=== PATIENT | male | born 1960 | race Caucasian/White ===

== ENCOUNTER → 2017-03-06 | Outpatient (CLI) | payer OTHER ==
--- NOTE | 2017-03-06 21:29 | Diagnostic Imaging Report ---
INDICATION: Wellness checkup. PA and lateral chest obtained at 5:06 p.m. comparison made to 03/06/2016. FINDINGS: Heart and mediastinal silhouette are normal in appearance. The lungs show no focal infiltrate. There is some mild pleural thickening in left costophrenic angle which appears chronic. There is no acute appearing finding. IMPRESSION: No acute infiltrate. Chronic pleural thickening in left costophrenic angle appearing similar to the prior study. No new abnormality. Dictated by: Dictated on workstation # [id number]
== END ==
LOC: RAD 16:37
PROVIDERS: ATTEND Family Medicine
DX: Z00.00 Encounter for general adult medical examination without abnormal findings (principal); J92.9 Pleural plaque without asbestos
CPT/HCPCS: 71020

== ENCOUNTER 2020-05-02 15:15 | Emergency (ER) | payer BC ==
[~2020-05-02] VITALS: Ht 175 cm; Wt 77.0 kg
[2020-05-02 15:25] VITALS: BP 140/64
--- NOTE | 2020-05-02 15:38 | ED Integumentary General ---
General Chief Complaint: Bite-Animal/Human/Insect Stated Complaint: R HAND WOUND History of Present Illness Date Seen by Provider: May 02, 2020 Time Seen by Provider: 15:28 Initial Comments Patient is a 60-year-old male who presents to the emergency room today with a chief complaint of a dog bite to his right hand. Patient was trying to disrupt 2 dogs that were fighting and 1 bit his hand in the webspace between the thumb and index finger of his right hand. Patient suffered an avulsion type injury about the size of a quarter to the dorsum of the hand at the webspace between the first and second fingers. No other complaints of recent illness or injury. Unknown last tetanus shot. Patient is not a diabetic. All other review of systems reviewed and negative except as stated above. Timing/Duration: just prior to arrival Severity: moderate Location: hands Possible Cause: other (Dog bite) Allergies and Home Medications Allergies Coded Allergies: No Known Drug Allergies (Unverified , 03/20/11) Patient Home Medication List Home Medication List Reviewed: Yes Review of Systems Review of Systems Constitutional: see HPI Respiratory: no symptoms reported Cardiovascular: no symptoms reported Gastrointestinal: no symptoms reported Musculoskeletal: other (Dog bite right hand) Skin: other (Dog bite right hand) All Other Systems Reviewed Negative Unless Noted: Yes Physical Exam Vital Signs Vital Signs - First Documented 05/02/20 15:25 Temp 35.7 Pulse 65 Resp 18 B/P (MAP) 140/64 (89) Pulse Ox 97 Capillary Refill : General Appearance: WD/WN, no apparent distress Cardiovascular: regular rate, rhythm Respiratory: no respiratory distress, no accessory muscle use Gastrointestinal: non tender, soft Extremities: normal range of motion, non-tender Skin: normal color, warm/dry, other (Patient has a quarter sized avulsion of full-thickness skin to the webspace of the right hand between the thumb and index finger on the dorsum of the hand, no active bleeding. Subcutaneous fat is visible.) Skin Problem Location: upper extremities (Dorsum of right hand) Progress/Results/Core Measures Results/Orders My Orders Orders - GABRIEL GALVIN MD Dipht,Enedelia(Acell),Tet Adult (Boostrix (05/02/20 15:45) Hand, Right, 2 Views (05/02/20 15:38) Vital Signs/I&O 05/02/20 15:25 Temp 35.7 Pulse 65 Resp 18 B/P (MAP) 140/64 (89) Pulse Ox 97 Progress Progress Note : Time: 15:48 Progress Note 60-year-old male presents with a chief complaint of dog bite to the right hand. Dog was quarantined by police. It was a stray dog reportedly. Unknown rabies immunization status. Patient has full-thickness avulsion of skin of the right hand between the thumb and index finger, approximately the size of a quarter. The wound was anesthetized with 1% lidocaine plain approximately 3 cc. No active bleeding from the wound. Wound will be dressed with a wet-to-dry dressing and the patient will be referred to Dr. Ware in wound care for further wound management. Patient will be discharged home on Augmentin. Patient is comfortable with plan of care. All questions are sought and an swered. Patient is stable for discharge. Departure Impression Primary Impression: Dog bite Qualified Codes: W54.0XXA - Bitten by dog, initial encounter Disposition: HOME, SELF-CARE Condition: Stable Departure-Patient Inst. Decision time for Depature: 15:50 Referrals: MONTANA AVILEZ MD (PCP/Family) Primary Care Physician JEWEL WARE MD Patient Instructions: Animal Bites (DC) Add. Discharge Instructions: Keep the wound clean dry and covered with a wet to dry dressing. You can change this dressing once a day. Also you can change the dressing if it becomes soiled/dirty. But make sure that it is a wet to dry dressing. Please call Dr. Ware's office tomorrow for a follow-up appointment this week. Return to the emergency room if you have any swelling of the hand with redness, drainage, fever or any other emergent concerning symptoms. Please take the antibiotics twice daily until they are gone. All discharge instructions reviewed with patient and/or family. Voiced understanding. Scripts Amoxicillin/Potassium Clav (Amox Tr-K Clv 875-125 mg Tab) 1 Each Tablet 1 EACH PO BID for 7 Days, #14 TAB Prov: GABRIEL GALVIN MD 05/02/20 Copy Copies To 1: MONTANA AVILEZ MD Copies To 2: JEWEL WARE MD, KATHRYN M MD May 02, 2020 15:38
[2020-05-02] MEDS ORDERED: TETANUS,DIPTH,PERTUSS P/F (BOOSTRIX) 0.5 ML VIAL IM ONE (15:45)
[2020-05-02] MEDS ORDERED: AMOX1TAB12 PO (15:58)
[2020-05-02] MEDS ORDERED: AUGMENTIN 875 MG TAB (AMOXICILLIN/CLAVULANATE) PO STA (16:00)
--- NOTE | 2020-05-02 16:04 | Diagnostic Imaging Report ---
INDICATION: Dog bite to right hand. EXAMINATION: Three views of the right hand were obtained. FINDINGS: The alignment is normal. There is no fracture or dislocation. There is no radiopaque foreign body. IMPRESSION: No focal abnormality in the right hand. Dictated by: Dictated on workstation # [id number]
== END 2020-05-02 16:10 | disposition home or self-care (01) ==
LOC: EDUNIT# 15:15 → ER 15:18
DX: S61.401A Unspecified open wound of right hand, initial encounter (principal); Z23 Encounter for immunization; W54.0XXA Bitten by dog, initial encounter
CPT/HCPCS: 73120; 90715; 99283

== ENCOUNTER → 2020-05-03 | Outpatient (CLI) | payer BC ==
[~2020-05-03] MED LIST: AMOX1TAB12 PO
== END ==
LOC: WOUNDCARE 13:10
PROVIDERS: ATTEND Orthopaedic Surgery Hand Surgery
DX: S61.451A Open bite of right hand, initial encounter (principal)
CPT/HCPCS: A6197; G0463; 99212

== ENCOUNTER → 2020-05-11 | Outpatient (CLI) | payer BC | LOC: WOUNDCARE 14:22 | PROVIDERS: ATTEND Surgery | DX: S61.451A Open bite of right hand, initial encounter (principal); I96 Gangrene, not elsewhere classified | CPT/HCPCS: 11042; A6260; G0463 ==

== ENCOUNTER → 2020-05-18 | Outpatient (CLI) | payer BC | LOC: WOUNDCARE 14:48 | PROVIDERS: ATTEND Surgery | DX: S61.451A Open bite of right hand, initial encounter (principal); I96 Gangrene, not elsewhere classified | CPT/HCPCS: 11042; G0463 ==

== ENCOUNTER → 2020-05-25 | Outpatient (CLI) | payer BC | LOC: WOUNDCARE 13:55 | PROVIDERS: ATTEND Surgery | DX: S61.451A Open bite of right hand, initial encounter (principal); I96 Gangrene, not elsewhere classified | CPT/HCPCS: 11042; G0463 ==

== ENCOUNTER → 2020-06-01 | Outpatient (CLI) | payer BC | LOC: WOUNDCARE 15:03 | PROVIDERS: ATTEND Surgery | DX: S61.451A Open bite of right hand, initial encounter (principal); I96 Gangrene, not elsewhere classified; X58.XXXA Exposure to other specified factors, initial encounter | CPT/HCPCS: 11042 ==

== ENCOUNTER 2021-03-08 05:41 | Outpatient (CLI) | payer BC ==
[~2021-03-08] VITALS: Ht 172.7 cm; Wt 81.5 kg
[2021-03-08] MEDS ORDERED: MULT-593 PO (09:22)
[2021-03-08] MEDS ORDERED: ASCO500T17 PO (09:22)
[2021-03-08] MEDS ORDERED: OMG1KC PO (09:22)
== END 2021-03-08 11:35 | disposition home or self-care (01) ==
LOC: PREOP 05:41
PROVIDERS: ATTEND Surgery
DX: Z01.818 Encounter for other preprocedural examination (principal)

== ENCOUNTER 2021-03-14 08:21 | Day surgery (SDC) | payer BC ==
[~2021-03-14] VITALS: Ht 172.7 cm; Wt 81.5 kg
[~2021-03-14 08:21] MED LIST changes: +ASCO500T17 PO; +MULT-593 PO; +OMG1KC PO
[2021-03-14] MEDS ORDERED: LACTATED RINGERS 1,000 ML IV ONE (08:28)
--- NOTE | 2021-03-14 08:29 | Progress Note-Pre Operative ---
Pre-Operative Progress Note H&P Reviewed The H&P was reviewed, patient examined and no changes noted. Time Seen by Provider: 08:27 Date H&P Reviewed: Mar 14, 2021 Time H&P Reviewed: 08:27 Pre-Operative Diagnosis: Screening colonoscopy JENNIFER SMITH DO Mar 14, 2021 08:29
[2021-03-14] MEDS ORDERED: LACTATED RINGERS 1,000 ML IV STA (08:30)
[2021-03-14 08:36] VITALS: BP 149/69
[2021-03-14] MEDS ORDERED: PROPOFOL INJECTION 50 ML IV ONE (08:49)
[2021-03-14 09:10] VITALS: BP 125/72
--- NOTE | 2021-03-14 09:10 | Progress Note-Post Operative ---
Post-Operative Progess Note Surgeon (s)/Motion Picture Scene Builder (s) Surgeon JENNIFER SMITH DO Motion Picture Scene Builder: none Pre-Operative Diagnosis Screening colonoscopy Post-Operative Diagnosis Diverticula Int hemorrhoids Procedure & Operative Findings Date of Procedure 03/14/21 Procedure Performed/Findings PROCEDURE NOTE: After informed consent was obtained, the patient was brought to the endoscopy suite, placed in bed in left lateral decubitus position. He was administered IV sedation by the TAPE CONTROL SKIN OR SPAR MILL OPERATOR who then monitored his vitals the entire time, heart rate, blood pressure and pulse ox and the scope was inserted, pushed all the way to about 110 cm and pushed into the cecum, took a picture of appendiceal orifice and then slowly withdrew the scope insufflating the circumferentially at the smith starting in the cecum, up the ascending colon to the hepatic flexure, then down the transverse colon, splenic flexure, into the descending colon down into the sigmoid colon. I saw at least one small diverticula and took a picture. Finally into the rectal vault and retroflexed the scope. Took a picture of the internal hemorrhoids. The patient tolerated the procedure. He was recovered in endoscopy suite. Anesthesia Type IV sedation by Anesthesia Estimated Blood Loss Estimated blood loss (mL): none Specimens/Packing Specimens Removed none JENNIFER SMITH DO Mar 14, 2021 09:10
--- NOTE | 2021-03-14 09:11 | Endoscopy Discharge Instruct ---
Endo Procedure/Findings Findings 1.: Diverticulosis 2.: Internal Hemorrhoids Discharge Instructions - Activity: You might feel a little sleepy until tomorrow. This is due to the medicine you received to relax you. Until tomorrow, you should: NOT drive a car, operate machinery or power tools. NOT drink any alcoholic beverages. NOT make any important decisions or sign importortant papers. Do not return to work until tomorrow, unless otherwise instructed. Resume previous activities tomorrow. Diet: Start by taking liquids. If you tolerate liquids, advance to solid food. 1.: Colonscopy in 10 years Notify Physician - If you experience excessive bleeding, unusual abdominal pain, fever, or chest pain, contact your doctor immediately. JENNIFER SMITH DO Mar 14, 2021 09:11
[2021-03-14 09:15] VITALS: BP_SYST 136; BP_SYST 141; BP_DIAS 74; BP_DIAS 78
[2021-03-14 09:35] VITALS: BP 135/76
[2021-03-14 09:36] VITALS: BP 135/76
--- NOTE | 2021-03-14 09:41 | Anesthesia-General Post-Op ---
MAC Patient Condition Mental Status/LOC: Same as Preop Cardiovascular: Satisfactory Nausea/Vomiting: Absent Respiratory: Satisfactory Pain: Controlled Complications: Absent Post Op Complications Complications None Follow Up Care/Instructions Patient Instructions None needed. Anesthesiology Discharge Order Discharge Order Patient was seen after the procedure and he was doing well, no complaints, stable vital signs, no apparent adverse anesthesia problems. NORA BRITO DO Mar 14, 2021 09:41
== END 2021-03-14 09:42 | disposition home or self-care (01) ==
LOC: ENDO 08:21
PROVIDERS: ATTEND Surgery
DX: Z12.11 Encounter for screening for malignant neoplasm of colon (principal); K57.30 Diverticulosis of large intestine without perforation or abscess without bleeding; K64.8 Other hemorrhoids; G47.33 Obstructive sleep apnea (adult) (pediatric); Z99.89 Dependence on other enabling machines and devices

== ENCOUNTER 2021-06-18 12:52 | Emergency (ER) | payer BC ==
[~2021-06-18] VITALS: Ht 175 cm; Wt 72.5 kg
[2021-06-18] MEDS ORDERED: AMOX1TAB12 PO (13:34)
--- NOTE | 2021-06-18 13:34 | ED General ---
General Chief Complaint: Bite-Animal/Human/Insect Stated Complaint: DOG BITE R LEG Nursing Triage Note: PT PRESENTS TO ED VIA POV FROM SCENE OF INJURY WITH COMPLAINTS OF MULTIPLE PUNCTURE WOUNDS TO R LEG RELATED TO A DOG BITE THAT HAPPENED 1 HOUR [employer]. Source of Information: Patient, Old Records Exam Limitations: No Limitations History of Present Illness Date Seen by Provider: Jun 18, 2021 Time Seen by Provider: 13:17 Initial Comments This 61-year-old gentleman presents to the emergency room with complaints of multiple dog bites on his right leg and thigh that occurred about an hour prior to arrival. There are several puncture wounds and one laceration on the proximal right carmona. Bleeding is controlled. The dog was identified and tab card press operator contacted by law enforcement according to the patient. He states that records were checked and the dog is up-to-date on rabies vaccination. Patient was attacked and bitten by the same dog a year ago. He sought treatment here and had a tetanus booster at that time. Patient fell during this incident. He had a minor bump to his head but denies any loss of consciousness, headache, or neurologic changes at this time. He reports stiffness in the neck musculature but no pain in the cervical spine. He has no cervical pain with range of motion. Cervical spine is nontender. Allergies and Home Medications Allergies Coded Allergies: No Known Drug Allergies (Unverified , 03/20/11) Patient Home Medication List Home Medication List Reviewed: Yes Amoxicillin/Potassium Clav (Amox Tr-K Clv 875-125 mg Tab) 1 Each Tablet, 1 EACH PO BID Prescribed by: AMISHA VARGAS on 06/18/21 1334 Ascorbic Acid (Vitamin C) 500 Mg Tablet, 500 MG PO DAILY, (Reported) Entered as Reported by: HAMILTON DORAN on 03/08/21921 Multivitamin with Minerals (Multiple Vitamin) 1 Each Tablet, 1 EACH PO DAILY, (Reported) Entered as Reported by: HAMILTON DORAN on 03/08/21921 [place] 3 Polyunsat Fatty Acids (Fish Oil 1,000 mg Capsule) 1,000 Mg Cap, 1,000 MG PO DAILY, (Reported) Entered as Reported by: HAMILTON DORAN on 03/08/21921 Review of Systems Review of Systems Constitutional: no symptoms reported EENTM: no symptoms reported Respiratory: no symptoms reported Cardiovascular: no symptoms reported Gastrointestinal: no symptoms reported Genitourinary: no symptoms reported Musculoskeletal: see HPI Skin: see HPI Psychiatric/Neurological: No Symptoms Reported Hematologic/Lymphatic: No Symptoms Reported Immunological/Allergic: no symptoms reported Past Xcqhood-Ewkxkj-Yqiwdx Hx Patient Social History Tobacco Use?: No Substance use?: No Alcohol Use?: Yes Alcohol Frequency: Rarely Pt feels they are or have been: No Immunizations Up To Date First/Initial COVID19 Vaccinat: NO Second COVID19 Vaccination Josh: NO Third COVID19 Vaccination Date: NO Seasonal Allergies Seasonal Allergies: No Past Medical History Surgeries: No Respiratory: No Cardiac: No Neurological: No Reproductive Disorders: No Gastrointestinal: No Musculoskeletal: No Endocrine: No HEENT: No Cancer: No Psychosocial: No Integumentary: No Physical Exam Vital Signs Vital Signs - First Documented 06/18/21 13:14 Temp 36.0 Pulse 60 Resp 18 B/P (MAP) 153/77 (102) Pulse Ox 98 Capillary Refill : Less Than 3 Seconds Height, Weight, BMI Height: '" Weight: lbs. oz. kg; 23.00 BMI Method: General Appearance: No Apparent Distress, WD/WN HEENT: PERRL/EOMI, Normal ENT Inspection Neck: Full Range of Motion, Normal Inspection, Non Tender Respiratory: Lungs Clear, Normal Breath Sounds Cardiovascular: Regular Rate, Rhythm, No Edema, No Murmur Extremity: Other (Multiple abrasions and puncture wounds on the right anterior and lateral thigh and lower leg. There is 1 larger laceration on the proximal right carmona with exposed adipose tissue. 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 It did not appear to be deeper than approximately 4-5 mm. Wounds were all scrubbed with saline and chlorhexidine. The deeper wound was irrigated with saline and chlorhexidine. Wounds were all dressed with antibiotic ointment and sterile gauze or Band-Aid. There was no significant bony tenderness around the tibia and patient was able to ambulate without significant pain around the proximal tibia. Record was reviewed and patient was found to be up-to-date on tetanus booster. He was prescribed amoxicillin and discharged with wound care instructions. See discharge instructions for further discussion. Departure Impression Primary Impression: Dog bite Qualified Codes: W54.0XXA - Bitten by dog, initial encounter Additional Impression: Laceration of leg Qualified Codes: S81.811A - Laceration without foreign body, right lower leg, initial encounter Disposition: 01 HOME, SELF-CARE Condition: Improved Departure-Patient Inst. Decision time for Depature: 13:29 Referrals: MONTANA AVILEZ MD (PCP/Family) Primary Care Physician Patient Instructions: Animal Bites ED Add. Discharge Instructions: Keep the wounds clean and dry except for normal showering. When you return home wash off the wounds for 5 to 10 minutes under running water in the shower. You may run soap suds over the wounds as well. Blot dry and cover any draining wounds. You may use antibiotic ointment or Vaseline to prevent dressing from sticking to the wound. Do not submerge until they are healed over with new skin growth which will likely take approximately 1 to 2 weeks. Complete your antibiotic as prescribed. You may take Tylenol (acetaminophen) and/or ibuprofen for pain. You received a tetanus booster a year ago when you were in the ER for the other dog bite. A repeat tetanus booster is not necessary today. Return to the ER if you have worsening symptoms including spreading redness and swelling around the bites, puslike drainage, or fever. Your wounds may ooze yellowish and/or bloody fluid for the next 2 or 3 days until they scab over. Keep covered as long as they are draining to collect the drainage. Also cover if you are active or in dirty environments. Otherwise you may leave open to air. Call with questions or concerns. Return to the ER if you have any other worsening symptoms or concerns. All discharge instructions reviewed with patient and/or family. Voiced understanding. Scripts Amoxicillin/Potassium Clav (Amox Tr-K Clv 875-125 mg Tab) 1 Each Tablet 1 EACH PO BID, #14 TAB Prov: BRUEGGEMANN,AMISHA T MD 06/18/21 AMISHA STROUD MD Jun 18, 2021 13:34
[2021-06-18 13:40] VITALS: BP 153/77
== END 2021-06-18 13:40 | disposition home or self-care (01) ==
LOC: EDUNIT# 12:52 → ER 12:54
DX: S81.851A Open bite, right lower leg, initial encounter (principal); W54.0XXA Bitten by dog, initial encounter
CPT/HCPCS: 99283

== ENCOUNTER → 2022-12-13 | Outpatient (CLI) | payer BC, OTHER ==
[2022-12-13 10:47] VITALS: BP 114/59
--- NOTE | 2022-12-13 16:28 | Cardiology Stress Test Report ---
Stress Test Report Date of Procedure/Referring: Date of Procedure: Dec 13, 2022 PCP [place] Garrett MD Admitting Physician Admitting Physician: Attending Physician: Blue Goetz MD Baseline Heart Rate: 40 Baseline Blood Pressure: Blood Pressure Systolic: 114 Blood Pressure Diastolic: 59 Baseline EKG: Baseline EKG: NSR Summary/Conclusion: Summary: In summary, the patient started exercising with a baseline heart rate, blood pressure and EKG mentioned above Patient was able to exercise for a total of 11 minutes on Se protocol, METs 12.1 Maximum heart rate 152 Maximum blood pressure 212/81 Stress EKG, Minimal nondiagnostic changes Recovery EKG , Return to baseline Conclusion: Excellent exercise tolerance for total of 11 minutes on standard Se protocol, 12.1 METS achieving 96% of maximum expected heart rate Baseline sinus bradycardia with appropriate heart rate response to exercise return to baseline during recovery Hypertensive response to exercise with peak blood pressure 212/81 return to ba seline during recovery Minimal nondiagnostic EKG changes with exercise return to baseline during recovery Copy Copies To 1: [place] GARRETT MD, BASHAR J MD Dec 13, 2022 16:28
== END ==
LOC: CARD 09:40
PROVIDERS: ATTEND Internal Medicine Cardiovascular Disease
DX: I10 Essential (primary) hypertension (principal); I25.10 Atherosclerotic heart disease of native coronary artery without angina pectoris
CPT/HCPCS: 93017; C8929; 93306